=== PATIENT | female | born 1995 | race Caucasian/White ===

== ENCOUNTER 2017-09-17 21:51 | Emergency (ER) | payer OTHER ==
[~2017-09-17] VITALS: Ht 162.6 cm; Wt 54.9 kg
[2017-09-18] MEDS ORDERED: MEDROLPACK PO (00:50)
[2017-09-18] MEDS ORDERED: CETIRIZINE HCL10 MG PO (00:50)
== END 2017-09-18 01:17 | disposition home or self-care (01) ==
LOC: ER 21:51
DX: R06.02 Shortness of breath (principal); T78.1XXA Other adverse food reactions, not elsewhere classified, initial encounter; X58.XXXA Exposure to other specified factors, initial encounter